=== PATIENT | female | born 1975 | race Caucasian/White ===

== ENCOUNTER → 2016-12-26 | Outpatient (CLI) | payer BC ==
[~2016-12-26] MED LIST: COLACE 100MG C100 MG PO
[2016-12-26 16:55] LABS: BUN/CREATININE RATIO 13 (0-10)
== END ==
LOC: LAB 16:07
PROVIDERS: Internal Medicine Cardiovascular Disease
DX: I10 Essential (primary) hypertension (principal)
CPT/HCPCS: 36415; 80048

== ENCOUNTER → 2020-10-14 | Outpatient (CLI) | payer BC | LOC: KOH-I 11:15 | DX: M79.604 Pain in right leg (principal); M79.605 Pain in left leg | CPT/HCPCS: 93970 ==

== ENCOUNTER → 2021-08-24 | Outpatient (CLI) | payer BC ==
[~2021-08-24] MED LIST changes: +HYZAAR 100-12.1 EACH PO; +IRON TD; +LEVOTHYROXINE112 MCG PO; +PEPCID40 MG PO; +ROPINIROLE HCL0.5 MG PO; +XYZAL5 MG PO
[2021-08-24 12:48] LABS: HEMOGLOBIN 11.1 gm/dl (12.3-15.3); RED BLOOD COUNT 4.14 M/UL (4.00-5.10); WHITE BLOOD COUNT 6.8 K/UL (4.5-11.0)
[2021-08-24 13:21] LABS: BUN/CREATININE RATIO 13 (0-10)
== END ==
LOC: OPSV2 12:00
PROVIDERS: Anesthesiology; Obstetrics & Gynecology
DX: Z01.818 Encounter for other preprocedural examination (principal); I10 Essential (primary) hypertension
CPT/HCPCS: 36415; 80048; 81001; 85025; 93005

== ENCOUNTER → 2021-09-06 | Day surgery (SDC) | payer BC ==
[~2021-09-06] MED LIST changes: +COLACE100 MG PO; +HYDROCODON-ACE1 EAC4 PO; +IBU800 MG PO
== END | disposition home or self-care (01) ==
LOC: OR 07:30
DX: N93.9 Abnormal uterine and vaginal bleeding, unspecified (principal); N85.4 Malposition of uterus; E03.9 Hypothyroidism, unspecified; I10 Essential (primary) hypertension; K21.9 Gastro-esophageal reflux disease without esophagitis; E66.01 Morbid (severe) obesity due to excess calories; D50.9 Iron deficiency anemia, unspecified; Z88.8 Allergy status to other drugs, medicaments and biological substances; Z20.822 Contact with and (suspected) exposure to COVID-19
CPT/HCPCS: 84703; J1100; J1885; J2001; J2250; J2405; J2704; J2765; J2795; J3010; J7030; J7120; U0002